=== PATIENT | female | born 1950 | race American Indian/Alaskan Native ===

== ENCOUNTER 2017-01-03 09:58 | Outpatient (CLI) | payer MEDICARE ==
--- NOTE | 2017-01-03 11:41 | Mammography Report ---
BONE DEXA:01/03/17 09:58:00 CLINICAL: Postmenopausal. No comparison. TECHNIQUE: Two site bone DEXA performed on an Hologic scanner. FINDINGS: The average BMD of the lumbar spine L1-L4 is 1.324g/cm squared with a T-score of +2.5 and a Z-score of +3.7. The average BMD of the left hip is 1.052g/cm squared with a T-score of +0.9 and a Z-score of +1.2. IMPRESSION: WHO classification: Normal with average fracture risk based on the spine and left measurements. RECOMMENDATION: Clinical correlation and routine screening. DEFINITIONS: BMD = Bone Mineral Density T-score = BMD related to mean peak bone mass of young adult (mean expressed in Standard Deviation) Z-score = Age matched BMD expressed in SD World Health Organization (WHO) Diagnostic Criteria Normal T-score > -1 SD Osteopenia T-score between -1 and -2.4 SD Osteoporosis T-score -2.5 SD or below NOTE: BMD is not the only risk factor for fracture. One should also consider factors such as the patient's age, risk of falling, previous osteoporotic fracture, family history of osteoporotic fractures, current smoker, and low body weight. Z-scores are not calculated if >80 years of age.
--- NOTE | 2017-01-03 13:09 | Mammography Report ---
BILATERAL DIGITAL SCREENING MAMMOGRAM with CAD: 01/03/17 09:58:00 CLINICAL: Routine screening. COMPARISON: None available. FINDINGS: The breasts are almost entirely fatty with a few residual scattered fibroglandular densities.No mass, architectural distortion or suspicious calcifications. IMPRESSION: No mammographic evidence of malignancy. BI-RADS CATEGORY: 1 -- Negative RECOMMENDATION: Routine mammographic screening in one year. COMMENT: Patient follow-up letters are generated by our [employer] application.
== END 2017-01-03 09:59 | disposition home or self-care (01) ==
LOC: MAMMO 09:58
DX: Z12.31 Encounter for screening mammogram for malignant neoplasm of breast (principal); Z78.0 Asymptomatic menopausal state
CPT/HCPCS: 77080; G0202; 77067

== ENCOUNTER 2018-10-08 20:10 | Emergency (ER) | payer MEDICARE ==
--- NOTE | 2018-10-08 20:18 | Emergency Department Report ---
Blank Doc - Documentation Documentation: This is a 68-year-old female that presents with right upper sided abdominal pain x months. Patient denies any radiation of pain. Patient denies any chest pain or SOB. Patient denies any other complaints. Patient stated has EGD and colonscopy several weakness ago and was normal. This initial assessment diagnostic orders/clinical plan/treatment(s) is/are subject to change based on patient's health status, clinical progression and re- assessment by fellow clinical providers in the ED. Further treatment and workup at subsequent clinical providers discretion. Patient/guardians urged not to elope from ED s their condition may be serious if not clinically assessed and managed. Initial orders include: 1-labs
[2018-10-08 20:20] VITALS: BP 171/88
[2018-10-08 20:41] LABS: Basophils # (Auto) 0.2 K/mm3 (0.0-0.1); Basophils % (Auto) 1.8 % (0.0-1.8); Eosinophils # (Auto) 0.2 K/mm3 (0.0-0.4); Eosinophils % (Auto) 1.9 % (0.0-4.3); Hematocrit 38.8 % (30.3-42.9); Hemoglobin 13.3 gm/dl (10.1-14.3); Lymphocytes % (Auto) 34.5 % (13.4-35.0); Mean Corpuscular HGB Conc 34 % (30-34); Mean Corpuscular Volume 90 fl (79-97); Monocytes # (Auto) 0.5 K/mm3 (0.0-0.8); Monocytes % (Auto) 6.2 % (0.0-7.3); Platelet Count 191 K/mm3 (140-440); Red Blood Count 4.32 M/mm3 (3.65-5.03); Red Cell Distribution Width 13.9 % (13.2-15.2)
[2018-10-08 20:50] LABS: Albumin 4.2 g/dL (3.9-5); BUN/Creatinine Ratio 10; Blood Urea Nitrogen 19 mg/dL (7-17); Calcium 9.1 mg/dL (8.4-10.2); Hemolysis Index 29
[2018-10-08 21:03] LABS: Alanine Aminotransferase < 5 units/L (7-56)
== END 2018-10-09 07:00 | disposition left against medical advice (07) ==
LOC: ED 20:10
DX: R10.9 Unspecified abdominal pain (principal); Z53.21 Procedure and treatment not carried out due to patient leaving prior to being seen by health care provider
CPT/HCPCS: 36415; 80053; 83690; 85025; 99283

== ENCOUNTER 2019-07-31 09:07 | Outpatient (CLI) | payer MEDICARE ==
--- NOTE | 2019-07-31 11:05 | Magnetic Resonance Report ---
MRI BRAIN WITHOUT CONTRAST INDICATION / CLINICAL INFORMATION: HEADACHE R51. Right-sided headache. TECHNIQUE: Multisequence, multiplanar images were obtained. COMPARISON: None available. FINDINGS: CEREBRAL and CEREBELLAR HEMISPHERES: No evidence of mass or mass effect. No midline shift. No acute hemorrhage. No diffusion restriction to suggest acute infarct. No extra-axial fluid collection. M inimal nonspecific T2 signal abnormalities are noted in the periventricular and subcortical white mat ter and moe is nonspecific. This is probably related to chronic microvascular ischemic disease. No c hronic infarct is identified. VENTRICLES: Normal in size and configuration for age. VISUALIZED ORBITS: No significant abnormality. VISUALIZED PARANASAL SINUSES: No significant abnormality. ADDITIONAL FINDINGS: Empty sella is noted. IMPRESSION: Unremarkable MR brain for age. Minimal nonspecific T2 signal abnormalities in the white matter which appear appropriate for this person's age. Signer Name: Nakul Hodges Jr, MD Signed: 07/31/2019 11:00 AM Workstation Name: [id number]
== END 2019-07-31 09:08 | disposition home or self-care (01) ==
LOC: MRI 09:07
PROVIDERS: ATTEND Psychiatry & Neurology Neurology
DX: R51 Headache (principal)
CPT/HCPCS: 70551

== ENCOUNTER 2020-12-18 09:00 | Outpatient (CLI) | payer MEDICARE ==
--- NOTE | 2020-12-18 10:18 | Fluoroscopy Report ---
Barium swallow with air-contrast INDICATION: Thickening and pain FINDINGS: Visualized lung and piriform sinuses appear normal. There may be a small diverticulum. Time out was given without stricture or narrowing. Because appears normal. Significant reflux is seen thro ughout the examination. Primary secondary peristaltic waves. The esophagus IMPRESSION: 1. Gastroesophageal reflux. 2. Esophageal dysmotility. No stricture or narrowing. Signer Name: Anthony Krishnan MD Signed: 12/18/2020 10:14 AM Workstation Name: [id number]
== END 2020-12-18 09:01 | disposition home or self-care (01) ==
LOC: FLUORO 09:00
PROVIDERS: ATTEND Internal Medicine Gastroenterology
DX: K21.9 Gastro-esophageal reflux disease without esophagitis (principal); K57.30 Diverticulosis of large intestine without perforation or abscess without bleeding
CPT/HCPCS: 74220

== ENCOUNTER 2020-12-27 16:42 | Emergency (ER) | payer MEDICARE | END 2020-12-27 17:05 | disposition left against medical advice (07) | LOC: ED 16:42 | DX: R07.81 Pleurodynia (principal); Z53.21 Procedure and treatment not carried out due to patient leaving prior to being seen by health care provider ==

== ENCOUNTER 2021-02-20 10:36 | Outpatient (CLI) | payer MEDICARE, MEDICAID ==
--- NOTE | 2021-02-20 14:59 | Cat Scan Report ---
CT neck wo con INDICATION / CLINICAL INFORMATION: 70 years Female; CERVICALGIA, pt states she feel as if she can not swallow and constantly feels full. . TECHNIQUE: Contiguous thin cut axial images obtained through the neck. Sagittal and coronal reconstructions perf ormed by the technologist. All CT scans at this location are performed using CT dose reduction for AL ELPIDIO by means of automated exposure control. COMPARISON: None available. FINDINGS: MUCOSAL SPACE: Prominent soft tissue is seen in the vallecula, presumably related to lingual tonsilla r tissue, which may be reactive. Please clinically correlate. Small internal laryngocele seen on the right. Otherwise, the nasopharynx, oropharynx and vallecula, oral cavity and floor of mouth, hypopharynx, an d larynx are grossly normal. LYMPH NODES: No significant adenopathy appreciated. SALIVARY GLANDS: Parotid, submandibular, and visualized sublingual glands are within normal limits. T here is no evidence of sialolith. THYROID GLAND: Subcentimeter cyst/nodule seen in the left thyroid lobe, which should be of no clinica l significance. PARANASAL SINUSES: Mild to moderate mucosal thickening seen in the mastoid air cells. SPINE: Large left anterolateral spondylophyte is seen at C6-7 which does encroach upon the adjacent e sophagus. Esophagram with dedicated attention to this region may be of benefit to evaluate for any fu nctional difficulty with this particular finding. Note, the esophagram was performed on 12/18/2020, al though no dedicated images of this area were obtained-this region can be difficult to evaluate with s tatic images because of relatively fast transit time of the bolus in this area. Mild disc space narrowing seen at C5-C6 and C4-5. No significant canal stenosis. There is osseous for aminal narrowing on the left at C5-6 from uncinate hypertrophy. VASCULAR STRUCTURES: Vascular structures are grossly normal in appearance. Mild atherosclerotic disea se noted. ADDITIONAL FINDINGS: None IMPRESSION: 1. No definitive cause for patient's symptomatology identified. 2. Large spondylophyte seen anteriorly at C6-7, which encroaches upon the adjacent esophagus. Follow- up with repeat esophagram as clinically warranted. Signer Name: Moe Fowler MD, III Signed: 02/20/2021 2:55 PM Workstation Name: [id number]
== END 2021-02-20 10:37 | disposition home or self-care (01) ==
LOC: CT 10:36
PROVIDERS: ATTEND Otolaryngology
DX: M47.812 Spondylosis without myelopathy or radiculopathy, cervical region (principal); M48.02 Spinal stenosis, cervical region; J32.0 Chronic maxillary sinusitis
CPT/HCPCS: 36415; 70490; 82565; 84520